=== PATIENT | male | born 1995 | race Caucasian/White ===

== ENCOUNTER 2018-02-14 22:50 | Observation (INO) | payer OTHER ==
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
[2018-02-14] MEDS ORDERED: fentaNYL 100 MCG/2 ML INJ IVP ONE (23:06)
[2018-02-14] MEDS ORDERED: NS 1,000 ML IV ONE (23:06)
[2018-02-14] MEDS ORDERED: ONDANSETRON 4 MG/2 ML VIAL IVP ONE (23:06)
[2018-02-14] MEDS ORDERED: PROPOFOL 200 MG/20 ML VIAL ONE (23:50)
[2018-02-14] MEDS ORDERED: fentaNYL 100 MCG/2 ML INJ ONE (23:50)
[2018-02-14] MEDS ORDERED: LIDOCAINE 2% 5 ML SDV ONE (23:51)
[2018-02-14] MEDS ORDERED: DEXAMETHASONE 4 MG/ML VIAL ONE (23:53)
[2018-02-14] MEDS ORDERED: ROCURONIUM 50 MG/5 ML VIAL ONE (23:53)
[2018-02-14] MEDS ORDERED: ONDANSETRON 4 MG/2 ML VIAL ONE (23:53)
[2018-02-14] MEDS ORDERED: KETOROLAC 30 MG/1 ML SDV ONE (23:53)
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
[2018-02-15] MEDS ORDERED: DIAZEPAM 5 MG TAB PO PRN (00:01)
[2018-02-15] MEDS ORDERED: ONDANSETRON 4 MG/2 ML VIAL IVP PRN ×2 (00:01→01:59)
[2018-02-15 00:05] LABS: PLATELET COUNT 147 10^3/uL (150-400)
[2018-02-15] MEDS ORDERED: BUPIVACAINE 0.25% 30 ML SDV ONE (00:06)
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
[2018-02-15] MEDS ORDERED: LR 1,000 ML IV SCH (00:30)
[2018-02-15] MEDS ORDERED: LR 1,000 ML IV ONE (00:33)
[2018-02-15] MEDS ORDERED: MIDAZOLAM 2 MG/2 ML VIAL ONE (00:46)
[2018-02-15] MEDS ORDERED: CLINDAMYCIN 600 MG/DEXTROSE/50 ML BAG IV ONE (00:47)
[2018-02-15] MEDS ORDERED: SUGAMMADEX SODIUM 200 MG/2 ML VIAL IVP ONE (00:49)
[2018-02-15] MEDS ORDERED: MIDAZOLAM 2 MG/2 ML VIAL IVP ONE (00:52)
[2018-02-15] MEDS ORDERED: PHENYLEPHRINE HCL 100 MCG/ML SYR ONE (01:15)
[2018-02-15] MEDS ORDERED: LR 500 ML IV PRN (01:59)
[2018-02-15] MEDS ORDERED: HYDROmorphONE/DILAUDID 1 MG/ML INJ IVP PRN (01:59)
[2018-02-15] MEDS ORDERED: ACETAMINOPHEN 500 MG TAB PO PRN (01:59)
[2018-02-15] MEDS ORDERED: PROMETHAZINE HCL 25 MG/ML INJ IVP PRN (01:59)
[2018-02-15] MEDS ORDERED: NALOXONE HCL 0.4 MG/ML INJ IVP PRN (01:59)
[2018-02-15] MEDS ORDERED: fentaNYL 100 MCG/2 ML INJ IVP PRN (01:59)
[2018-02-15] MEDS ORDERED: HYDROCODONE/APAP 5/325 TAB PO PRN (01:59)
[2018-02-15] MEDS ORDERED: LABETALOL HCL 5 MG/ML 20 ML MDV IVP PRN (01:59)
[2018-02-15] MEDS ORDERED: oxyCODONE IR 5 MG TAB PO PRN (01:59)
[2018-02-15] MEDS ORDERED: ALBUTEROL 3 ML DEYVIAL IH PRN (01:59)
--- NOTE | 2018-02-15 01:59 | POSTANESTH ---
Post Anesthetic Evaluation Cardiovascular Status: Normal, Stable Respiratory Status: Normal, Stable Level of Consciousness/Mental Status: Can Participate in Eval, Mildly Sleepy, Arousable Pain Control: Adequate, Prn Tx Ordered Nausea/Vomiting Control: Adequate, Prn Tx Ordered Complications Possibly Related to Anesthesia: None Noted
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
[2018-02-15 07:38] LABS: PLATELET COUNT 122 10^3/uL (150-400)
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
[2018-02-15] MEDS: ENOXAPARIN 40 MG/0.4 ML SYR SC SCH (09:31)
[2018-02-15] MEDS: CLINDAMYCIN 600 MG/DEXTROSE 50 ML IV SCH ×2 (09:32→17:15)
--- NOTE | 2018-02-15 09:34 | TRAUMAPNT ---
Trauma Tertiary Progress Note Assessment/Plan: Assessment: Plan: Subjective: tertiary survey done- no new injuries identified. Objective: Vital Signs Temp Pulse Resp BP Pulse Ox 37.7 C 79 19 116/97 H 93 02/15/18 07:38 02/15/18 07:38 02/15/18 07:38 02/15/18 07:38 02/15/18 07:38 Laboratory Results 02/15/18 07:05 02/15/18 00:07 02/14/18 02/15/18 02/16/18 05:59 05:59 05:59 Intake Total 3350 Output Total 525 500 Balance 2825 -500 PT REJ 02/14/18 23:47 INR REJ 02/14/18 23:47
[2018-02-15] MEDS: ONDANSETRON DISINTEGRATING 4 MG TAB PO PRN (10:51)
[2018-02-15] MEDS ORDERED: ACETAMINOPHEN 325 MG TAB PO PRN (13:54)
[2018-02-15 16:48] LABS: PLATELET COUNT 122 10^3/uL (150-400)
[2018-02-15] MEDS: HYDROCODONE/APAP 5/325 TAB PO PRN (19:00)
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
[2018-02-16] MEDS: HYDROCODONE/APAP 5/325 TAB PO PRN ×2 (00:17→04:46)
[2018-02-16] MEDS: CLINDAMYCIN 600 MG/DEXTROSE 50 ML IV SCH ×2 (01:06→08:39)
[2018-02-16 05:48] LABS: PLATELET COUNT 95 10^3/uL (150-400)
[2018-02-16 08:30] VITALS: BP 105/64
[2018-02-16] MEDS: ENOXAPARIN 40 MG/0.4 ML SYR SC SCH (08:39)
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
[2018-02-16] MEDS: ONDANSETRON DISINTEGRATING 4 MG TAB PO PRN (09:29)
== END 2018-02-16 10:40 | disposition home or self-care (01) ==
LOC: F2N 02-15 03:00 → F3N 02-15 12:36
PROVIDERS: ADMIT Surgery; ATTEND Surgery
PROC: 0QQ Lower Bones, Repair (ICD-10-PCS; principal; 2018-02-14)
PROC: 0JQF0ZZ Repair Left Upper Arm Subcutaneous Tissue and Fascia, Open Approach (ICD-10-PCS; principal; 2018-02-14)
PROC: 0QQ Lower Bones, Repair (ICD-10-PCS; principal; 2018-02-14)
DX: S31.62 Laceration with foreign body of abdominal wall with penetration into peritoneal cavity (principal); S81.822A Laceration with foreign body, left lower leg, initial encounter; S51.022A Laceration with foreign body of left elbow, initial encounter; S02.40EA Zygomatic fracture, right side, initial encounter for closed fracture; S27.0XXA Traumatic pneumothorax, initial encounter; S02.40CA Maxillary fracture, right side, initial encounter for closed fracture; S02.31XA Fracture of orbital floor, right side, initial encounter for closed fracture; S06.0X9A Concussion with loss of consciousness of unspecified duration, initial encounter; S80.212A Abrasion, left knee, initial encounter; S80.211A Abrasion, right knee, initial encounter; S90.811A Abrasion, right foot, initial encounter; S90.812A Abrasion, left foot, initial encounter; V29.9XXA Motorcycle rider (driver) (passenger) injured in unspecified traffic accident, initial encounter; Y92.410 Unspecified street and highway as the place of occurrence of the external cause; Z88.1 Allergy status to other antibiotic agents
CPT/HCPCS: 11044; 11047; 13121; 70486; 71045; 73080; 73590; 92507; 92523; 96374; 96375; 97116; 97161; 97166; 99285; G0378; J1100; J1650; J1885; J2250; J2270; J2370; J2405; J2704; J3010